=== PATIENT | female | born 1985 | race American Indian/Alaskan Native ===

== ENCOUNTER 2017-11-22 15:26 | Observation (INO) | payer OTHER ==
[2017-11-22 16:33] LABS: BASO # 0.1 K/uL (0.0-0.2); BASO % 1.5 % (0.0-2.0); EOS # 0.1 K/uL (0.0-0.7); EOS % 0.8 % (0.0-4.0); HEMOGLOBIN 6.7 g/dL (12.0-16.0); LYMPH # 3.2 K/uL (1.0-4.3); MEAN CELL VOLUME 64.6 fl (81.0-99.0); MEAN CORPUSCULAR HEMOGLOBIN 18.2 pg (27.0-31.0); MEAN CORPUSCULAR HGB CONC 28.2 g/dL (33.0-37.0); MEAN PLATELET VOLUME 8.9 fl (7.2-11.7); MONO # 0.5 K/uL (0.0-0.8); MONO % 6.6 % (0.0-10.0); NEUT # 3.7 K/uL (1.8-7.0); NEUT % 49.1 % (50.0-75.0); NRBC % 0.1 % (0.0-0.0); RBC 3.68 Mil/uL (3.80-5.20); RED CELL DISTRIBUTION WIDTH 23.7 % (11.5-14.5); WHITE BLOOD COUNT 7.6 K/uL (4.8-10.8)
[2017-11-22 16:50] LABS: INR 1.2 (0.9-1.2); PARTIAL THROMBOPLASTIN TIME 34.5 Seconds (25.6-37.1); PROTHROMBIN TIME 13.2 Seconds (9.8-13.1)
[2017-11-22 17:05] LABS: % IRON SATURATION 2.19 % (20-55)
[2017-11-22 17:06] LABS: IRON < 10 ug/dL (37-170); TOTAL IRON BINDING CAPACITY 455 ug/dL (250-450)
[2017-11-22 17:11] LABS: ALB/GLOB RATIO 1.4 (1.0-2.1); ALBUMIN 4.3 g/dL (3.5-5.0); ALT/SGPT 19 U/L (9-52); AST/SGOT 27 U/L (14-36); BLOOD UREA NITROGEN 7 mg/dl (7-17); CALCIUM 9.5 mg/dL (8.4-10.2); GFR AFRICAN-AMERICAN > 60; GFR NON-AFRICAN AMERICAN > 60; MAGNESIUM 1.9 MG/DL (1.6-2.3)
[2017-11-22 17:19] LABS: FERRITIN 2.6 ng/Ml (6.24-137.0)
--- NOTE | 2017-11-22 18:45 | ED PDOC ---
Syncope/Near Syncope/Dizziness Time Seen by Provider: 11/22/17 15:46 Chief Complaint (Nursing): Abnormal Labs Chief Complaint (Provider): near syncope History Per: Patient History/Exam Limitations: no limitations Onset/Duration Of Symptoms: Days (x1 month) Current Symptoms Are (Timing): Still Present Additional Complaint(s): 32 year old female who presents to the emergency department with a complaint of lightheadedness associated with near syncope, chest heaviness, pale fingers and heavy menstruation ongoing for 1 month. Denied any nosebleeds, dental bleed, dark or bloody stools. Patient was seen in Urgent Care on 11/16/17 when symptoms became severe and bloodwork revealed hemoglobin: 7.1. PMD: none provided Past Medical History Reviewed: Historical Data, Nursing Documentation, Vital Signs Vital Signs: Last Vital Signs Temp 98.2 F 11/22/17 15:33 Pulse 68 11/22/17 15:33 Resp 18 11/22/17 15:33 BP 112/53 L 11/22/17 15:33 Pulse Ox 100 11/22/17 15:33 - Medical History PMH: No Chronic Diseases - Surgical History Surgical History: No Surg Hx - Family History Family History: States: No Known Family Hx - Social History Current smoker - smoking cessation education provided: No Alcohol: None Drugs: Denies - Home Medications Home Medications: Ambulatory Orders Medication Instructions Recorded No Known Home Med 11/22/17 - Allergies Allergies/Adverse Reactions: Allergies Allergy/AdvReac Type Severity Reaction Status Date / Time No Known Allergies Allergy Verified 11/22/17 15:33 Review of Systems ROS Statement: Except As Marked, All Systems Reviewed And Found Negative ENT: Negative for: Nose Discharge (bleed), Other (dental bleed) Cardiovascular: Positive for: Chest Pain (heaviness), Light Headedness Gastrointestinal: Negative for: Melena, Hematochezia Genitourinary Female: Positive for: Vaginal Bleeding (heavy menstrual period) Skin: Positive for: Other (pallor fingers) Neurological: Positive for: Dizziness (near syncope) Physical Exam - Reviewed Nursing Documentation Reviewed: Yes Vital Signs Reviewed: Yes - Physical Exam Appears: Positive for: Non-toxic, In Acute Distress Head Exam: Positive for: ATRAUMATIC, NORMOCEPHALIC Skin: Positive for: Warm, Dry, Pallor Eye Exam: Positive for: EOMI, PERRL ENT: Negative for: Pharyngeal Erythema, Tonsillar Exudate Neck: Positive for: Painless ROM, Supple Cardiovascular/Chest: Positive for: Regular Rate, Rhythm, Chest Non Tender. Negative for: Murmur Respiratory: Positive for: Normal Breath Sounds. Negative for: Wheezing Gastrointestinal/Abdominal: Positive for: Soft. Negative for: Tenderness Back: Positive for: Normal Inspection. Negative for: Decreased ROM Extremity: Positive for: Normal ROM. Negative for: Deformity Lymphatic: Negative for: Adenopathy Neurologic/Psych: Positive for: Alert. Negative for: Motor/Sensory Deficits - Laboratory Results Result Diagrams: 11/22/17 16:10 11/22/17 16:10 - ECG O2 Sat by Pulse Oximetry: 100 (RA) Pulse Ox Interpretation: Normal Medical Decision Making Medical Decision Making: Initial Impression: Symptomatic anemia Initial Plan: * Crossmatch 1721 * Type and screen * EKG * CMP * Ferritin * Iron and TIBC * Magnesium * Phosphorous * Vitamin B12 * Hematology oncology consult 1736 * Urine * Urine dipstick * CBC * PTT * PT * Folate, RBC * Venofer 100ml IVPB * Call Rasta/oc 173 Time: 1722 --Hemoglobin recorded at 6.7 in ED. --Iron study: severe decrease in amount --Discussed case with Dr. Corbett, stencil maker recruitment consultant. Recommended admittance to hospital for blood and iron transfusions. --Discussed findings and plan with patient. --Dr. Quintanilla made aware of case. Scribe Attestation: Documented by Reena Osullivan, acting as a scribe for Danielle Silverman MD. Provider Scribe Attestation: All medical record entries made by the Scribe were at my direction and personally dictated by me. I have reviewed the chart and agree that the record accurately reflects my personal performance of the history, physical exam, medical decision making, and the department course for this patient. I have also personally directed, reviewed, and agree with the discharge instructions and disposition. Disposition - Clinical Impression Clinical Impression: Anemia, Iron deficiency, Symptomatic anemia - Disposition Disposition Time: 17:30 Condition: FAIR - Pt Status Changed To: Hospital Disposition Of: Observation - POA Present On Arrival: None
--- NOTE | 2017-11-22 23:02 | CP.PCM.CON ---
History of Present Illness - History of Present Illness History of Present Illness: OB consult note 32 year old female w/o PMH admitted due to symptomatic anemia with a complaint of lightheadedness associated with near syncope, chest heaviness, pale fingers and heavy menstruation ongoing for 1 month. Patient reports regular cycles lasting 7 days with heavy bleeding changing 3-4 pads per day. States some clots during periods. Denied any nosebleeds, dental bleed, dark or bloody stools. Patient was seen in Urgent Care on 11/16/17 when symptoms became severe and bloodwork revealed hemoglobin: 7.1, H/H today 6.7/23.8. PMH: none FMH: none PSH: none Meds: none NKDA SH: denies tobacco,etoh, ilicit drugs. Review of Systems - Review of Systems All systems: reviewed and no additional remarkable complaints except (as per HPI ) Past Patient History - Past Medical History & Family History Past Medical History?: No - Past Social History Smoking Status: Never Smoked - CARDIAC Hx Cardiac Disorders: No - PULMONARY Hx Respiratory Disorders: No - NEUROLOGICAL Hx Neurological Disorder: No - HEENT Hx HEENT Problems: No - RENAL Hx Chronic Kidney Disease: No - ENDOCRINE/METABOLIC Hx Endocrine Disorders: No - HEMATOLOGICAL/ONCOLOGICAL Hx Blood Disorders: No - INTEGUMENTARY Hx Dermatological Problems: No - MUSCULOSKELETAL/RHEUMATOLOGICAL Hx Musculoskeletal Disorders: No Hx Falls: No - GASTROINTESTINAL Hx Gastrointestinal Disorders: No - GENITOURINARY/GYNECOLOGICAL Hx Genitourinary Disorders: No - PSYCHIATRIC Hx Psychophysiologic Disorder: No Hx Substance Use: No - SURGICAL HISTORY Hx Surgeries: Yes Other/Comment: [place] teeth removal - ANESTHESIA Hx Anesthesia: Yes Hx Anesthesia Reactions: No Hx Malignant Hyperthermia: No Has any member of the family had a problem w/ anesthesia?: No Meds Allergies/Adverse Reactions: Allergies Allergy/AdvReac Type Severity Reaction Status Date / Time No Known Allergies Allergy Verified 11/22/17 15:33 Physical Exam - Constitutional Appears: Well, No Acute Distress - Head Exam Head Exam: ATRAUMATIC, NORMOCEPHALIC - Eye Exam Eye Exam: EOMI Pupil Exam: PERRL Additional comments: Pale mocous - Neck Exam Neck exam: Positive for: Normal Inspection - Respiratory Exam Respiratory Exam: Clear to Auscultation Bilateral - Cardiovascular Exam Cardiovascular Exam: REGULAR RHYTHM, +S1, +S2. absent: Systolic Murmur - GI/Abdominal Exam GI & Abdominal Exam: Normal Bowel Sounds, Soft. absent: Distended, Tenderness - Exam Bimanual exam: NORMAL BIMANUAL EXAM. absent: Adenexal Mass, Cervical Motion Tendernes, Uterine Enlargement, Uterine Tenderness Additional comments: Change Manager in room: Skip Hilton RN. - Extremities Exam Extremities exam: Positive for: normal inspection - Neurological Exam Neurological exam: CN II-XII Intact, Oriented x3 Results - Vital Signs Recent Vital Signs: Last Vital Signs Temp 98.3 F 11/22/17 21:34 Pulse 74 11/22/17 22:32 Resp 20 11/22/17 22:32 BP 141/90 11/22/17 21:34 Pulse Ox 97 11/22/17 22:32 - Labs Result Diagrams: 11/22/17 16:10 11/22/17 16:10 Labs: Laboratory Results - last 24 hr 11/22/17 11/22/17 11/22/17 16:10 16:10 16:10 WBC 7.6 RBC 3.68 L Hgb 6.7 L Hct 23.8 L MCV 64.6 L MCH 18.2 L MCHC 28.2 L RDW 23.7 H Plt Count 269 MPV 8.9 Neut % (Auto) 49.1 L Lymph % (Auto) 42.0 H Craven % (Auto) 6.6 Eos % (Auto) 0.8 Baso % (Auto) 1.5 Neut # 3.7 Lymph # 3.2 Craven # 0.5 Eos # 0.1 Baso # 0.1 PT 13.2 H INR 1.2 APTT 34.5 Sodium 141 Potassium 3.8 Chloride 106 Carbon Dioxide 23 Anion Gap 16 BUN 7 Creatinine 0.9 Est GFR ( Amer) > 60 Est GFR (Non-Af Amer) > 60 Random Glucose 91 Calcium 9.5 Phosphorus 3.6 Magnesium 1.9 Iron TIBC % Saturation Ferritin 2.6 L Total Bilirubin 0.3 AST 27 ALT 19 Alkaline Phosphatase 58 Total Protein 7.4 Albumin 4.3 Globulin 3.2 Albumin/Globulin Ratio 1.4 Vitamin B12 416 Blood Type Blood Type Confirm Antibody Screen Crossmatch BBK History Checked 11/22/17 11/22/17 11/22/17 16:10 16:15 16:56 WBC RBC Hgb Hct MCV MCH MCHC RDW Plt Count MPV Neut % (Auto) Lymph % (Auto) Craven % (Auto) Eos % (Auto) Baso % (Auto) Neut # Lymph # Craven # Eos # Baso # PT INR APTT Sodium Potassium Chloride Carbon Dioxide Anion Gap BUN Creatinine Est GFR ( Amer) Est GFR (Non-Af Amer) Random Glucose Calcium Phosphorus Magnesium Iron < 10 L TIBC 455 H % Saturation 2.19 L Ferritin Total Bilirubin AST ALT Alkaline Phosphatase Total Protein Albumin Globulin Albumin/Globulin Ratio Vitamin B12 Blood Type O POSITIVE Blood Type Confirm O POSITIVE Antibody Screen Negative Crossmatch See Detail BBK History Checked No verified bt Assessment & Plan - Assessment and Plan (Free Text) Assessment: 1-Symptomatic anemia -H/H 6.7/23.8 -secondary to heavy periods -iron deficiency: Iron <10 TIBC 455 Ferritin 2.6 -PRBC 2 units -Venofer 200mg IV once -f/u CBC 2- Menorrhagia -h/o heavy menses -transvaginal US Case discussed with Dr Silva, OB hospitalist marketing operations consultant Rosaura PGY 1.
[2017-11-23 05:17] VITALS: O2SAT 100
[2017-11-23 10:59] LABS: HEMOGLOBIN 8.9 g/dL (12.0-16.0); MEAN CELL VOLUME 67.8 fl (81.0-99.0); MEAN CORPUSCULAR HEMOGLOBIN 20.8 pg (27.0-31.0); MEAN CORPUSCULAR HGB CONC 30.6 g/dL (33.0-37.0); RBC 4.31 Mil/uL (3.80-5.20); RED CELL DISTRIBUTION WIDTH 25.5 % (11.5-14.5); WHITE BLOOD COUNT 5.8 K/uL (4.8-10.8)
[2017-11-23 11:10] LABS: ALB/GLOB RATIO 1.3 (1.0-2.1); ALT/SGPT 17 U/L (9-52); AST/SGOT 29 U/L (14-36); BLOOD UREA NITROGEN 7 mg/dl (7-17); CALCIUM 9.5 mg/dL (8.4-10.2); GFR AFRICAN-AMERICAN > 60; GFR NON-AFRICAN AMERICAN > 60
--- NOTE | 2017-11-23 11:44 | CP.PCM.CON ---
History of Present Illness - History of Present Illness History of Present Illness: 32 year old female with a history of menorrhagia, admitted with symptomatic anemia s/p PRBC transfusion. The patient reports to having blood work done at a local urgent care facility last week due to progressive fatigue. She was informed this week that her hgb was 7.1 with noted palpitations and told to report to the ER. In the ER she was found to have a hgb of 6.7 and admitted for PRBC transfusion. She is s/p 2U PRBC and Venofer. A transvaginal US revealed multiple uterine fibroids. Past medical history: Menorrhagia Past surgical history: none Family history: Denies hematologic and oncologic problems Social history: Denies tobacco, alcohol, and illicit drug use Allergies: NKA Review of systems: All remaining review of systems including HEENT, cardiovascular, respiratory, gastrointestinal, genitourinary, musculoskeletal, dermatologic, neurologic, and psychiatric are negative unless mentioned in the HPI. Past Patient History - Past Medical History & Family History Past Medical History?: No - Past Social History Smoking Status: Never Smoked - CARDIAC Hx Cardiac Disorders: No - PULMONARY Hx Respiratory Disorders: No - NEUROLOGICAL Hx Neurological Disorder: No - HEENT Hx HEENT Problems: No - RENAL Hx Chronic Kidney Disease: No - ENDOCRINE/METABOLIC Hx Endocrine Disorders: No - HEMATOLOGICAL/ONCOLOGICAL Hx Blood Disorders: No - INTEGUMENTARY Hx Dermatological Problems: No - MUSCULOSKELETAL/RHEUMATOLOGICAL Hx Musculoskeletal Disorders: No - GASTROINTESTINAL Hx Gastrointestinal Disorders: No - GENITOURINARY/GYNECOLOGICAL Hx Genitourinary Disorders: No - PSYCHIATRIC Hx Psychophysiologic Disorder: No - SURGICAL HISTORY Hx Surgeries: Yes Other/Comment: [place] teeth removal - ANESTHESIA Hx Anesthesia: Yes Hx Anesthesia Reactions: No Hx Malignant Hyperthermia: No Has any member of the family had a problem w/ anesthesia?: No Meds Home Medications: Home Medication List Medication Instructions Recorded Confirmed Type Ferrous Sulfate 325 mg PO DAILY #30 11/23/17 Rx Allergies/Adverse Reactions: Allergies Allergy/AdvReac Type Severity Reaction Status Date / Time No Known Allergies Allergy Verified 11/22/17 15:33 - Medications Medications: Current Medications Iron Sucrose 200 mg/ Sodium (Chloride) 110 mls @ 110 mls/hr IVPB DAILY CIERRA Physical Exam - Head Exam Head Exam: ATRAUMATIC - Eye Exam Eye Exam: Normal appearance - ENT Exam ENT Exam: Mucous Membranes Dry - Respiratory Exam Respiratory Exam: NORMAL BREATHING PATTERN - Cardiovascular Exam Cardiovascular Exam: +S1, +S2 - GI/Abdominal Exam GI & Abdominal Exam: Normal Bowel Sounds - Extremities Exam Extremities exam: Positive for: normal inspection - Neurological Exam Neurological exam: Oriented x3 - Psychiatric Exam Psychiatric exam: Normal Affect, Normal Mood - Skin Skin Exam: Warm Results - Vital Signs Recent Vital Signs: Last Vital Signs Temp 98.3 F 11/23/17 08:08 Pulse 74 11/23/17 09:00 Resp 20 11/23/17 08:08 BP 104/63 11/23/17 08:08 Pulse Ox 100 11/23/17 08:08 - Labs Result Diagrams: 11/23/17 10:44 11/23/17 10:44 Labs: Laboratory Results - last 24 hr 11/22/17 11/22/17 11/22/17 16:10 16:10 16:10 WBC 7.6 RBC 3.68 L Hgb 6.7 L Hct 23.8 L MCV 64.6 L MCH 18.2 L MCHC 28.2 L RDW 23.7 H Plt Count 269 MPV 8.9 Neut % (Auto) 49.1 L Lymph % (Auto) 42.0 H [place] % (Auto) 6.6 Eos % (Auto) 0.8 Baso % (Auto) 1.5 Neut # 3.7 Lymph # 3.2 Irwin # 0.5 Eos # 0.1 Baso # 0.1 PT 13.2 H INR 1.2 APTT 34.5 Sodium 141 Potassium 3.8 Chloride 106 Carbon Dioxide 23 Anion Gap 16 BUN 7 Creatinine 0.9 Est GFR ( Amer) > 60 Est GFR (Non-Af Amer) > 60 Random Glucose 91 Calcium 9.5 Phosphorus 3.6 Magnesium 1.9 Iron TIBC % Saturation Ferritin 2.6 L Total Bilirubin 0.3 AST 27 ALT 19 Alkaline Phosphatase 58 Total Protein 7.4 Albumin 4.3 Globulin 3.2 Albumin/Globulin Ratio 1.4 Vitamin B12 416 Blood Type Blood Type Confirm Antibody Screen Crossmatch BBK History Checked 11/22/17 11/22/17 11/22/17 16:10 16:15 16:56 WBC RBC Hgb Hct MCV MCH MCHC RDW Plt Count MPV Neut % (Auto) Lymph % (Auto) Irwin % (Auto) Eos % (Auto) Baso % (Auto) Neut # Lymph # [place]win # Eos # Baso # PT INR APTT Sodium Potassium Chloride Carbon Dioxide Anion Gap BUN Creatinine Est GFR ( Amer) Est GFR (Non-Af Amer) Random Glucose Calcium Phosphorus Magnesium Iron < 10 L TIBC 455 H % Saturation 2.19 L Ferritin Total Bilirubin AST ALT Alkaline Phosphatase Total Protein Albumin Globulin Albumin/Globulin Ratio Vitamin B12 Blood Type O POSITIVE Blood Type Confirm O POSITIVE Antibody Screen Negative Crossmatch See Detail BBK History Checked No verified bt 11/23/17 11/23/17 10:44 10:44 WBC 5.8 RBC 4.31 Hgb 8.9 L D Hct 29.2 L MCV 67.8 L D MCH 20.8 L MCHC 30.6 L RDW 25.5 H Plt Count 261 MPV Neut % (Auto) Lymph % (Auto) Irwin % (Auto) Eos % (Auto) Baso % (Auto) Neut # Lymph # [place] # Eos # Baso # PT INR APTT Sodium 142 Potassium 4.1 Chloride 106 Carbon Dioxide 24 Anion Gap 16 BUN 7 Creatinine 0.9 Est GFR ( Amer) > 60 Est GFR (Non-Af Amer) > 60 Random Glucose 94 Calcium 9.5 Phosphorus Magnesium Iron TIBC % Saturation Ferritin Total Bilirubin 0.8 AST 29 ALT 17 Alkaline Phosphatase 45 Total Protein 7.0 Albumin 4.0 Globulin 3.0 Albumin/Globulin Ratio 1.3 Vitamin B12 Blood Type Blood Type Confirm Antibody Screen Crossmatch BBK History Checked Assessment & Plan (1) Anemia Assessment and Plan: work up consistent with iron deficiency anemia likely from menorrhagia from uterine fibroids s/p 2U PRBC and Venofer repeat CBC pending and to receive another dose of Venofer outpatient f/u in 1 week Thank you for this interesting consult. Status: Acute
[2017-11-23 12:28] VITALS: PULSE 72
--- NOTE | 2017-11-23 15:11 | US ---
HISTORY: menorrhagia COMPARISON: None available. TECHNIQUE: Grayscale, color Doppler and spectral evaluation of the pelvis performed transvaginally. FINDINGS: UTERUS: Measures 13.8 x 7.9 x 10.0 cm. Anteverted. Large fundal fibroid measuring 8.3 x 6.7 x 7.4 centimeter. Left-sided pedunculated fibroid measuring 4.1 x 3.2 x 3.4 centimeter. ENDOMETRIUM: Measures 6 mm in diameter. Unremarkable. CERVIX: No cervical abnormality identified. RIGHT OVARY: Measures 4.1 x 3.6 x 3.1 cm. No solid mass. Normal flow. LEFT OVARY: Measures 5.3 x 1.9 x 4.5 cm. No solid mass. Normal flow. FREE FLUID: No significant free fluid noted. OTHER FINDINGS: None. IMPRESSION: Multiple uterine leiomyomas, the largest of which measures up to 8.3 centimeter.
[2017-11-23 15:50] VITALS: BP 103/67; RESP 19; TEMP 98.2
--- NOTE | 2017-11-23 16:32 | CP.PCM.CON ---
History of Present Illness - History of Present Illness History of Present Illness: I was asked to see patient by Dr Quintanilla. Patient is a 32 year old female with no significant PMH who presents with fatigue and palpitations. The patient was found to be anemic and required blood transfusion. She has more energy, but still has intermittent palpitaitons. Telemetry reveals NSR. Review of Systems - Constitutional Constitutional: absent: As Per HPI, Anorexia, Chills, Daytime Sleepiness, Excessive Sweating, Fatigue, Fever, Frequent Falls, Headache, Increased Appetite , Lethargy, Malaise, Night Sweats, Snoring, Sleep Apnea, Weight Gain, Weight Loss, Weakness, Other - EENT Eyes: absent: As Per HPI, Blind Spots, Blurred Vision, Change in Vision, Decreased Night Vision, Diplopia, Discharge, Dry Eye, Exophthalmos, Floaters, Irritation, Itchy Eyes, Loss of Peripheral Vision, Pain, Photophobia, Requires Corrective Lenses, Sees Flashes, Spots in Vision, Tunnel Vision, Other Visual Disturbances, Loss of Vision, Other Ears: absent: As Per HPI, Decreased Hearing, Ear Discharge, Ear Pain, Tinnitus, Abnormal Hearing, Disequilibrium, Dizziness, Other Nose/Mouth/Throat: absent: As Per HPI, Epistaxis, Nasal Congestion, Nasal Discharge, Nasal Obstruction, Nasal Trauma, Nose Pain, Post Nasal Drip, Sinus Pain, Sinus Pressure, Bleeding Gums, Change in Voice, Dental Pain, Dry Mouth, Dysphagia, Halitosis, Hoarsness, Lip Swelling, Mouth Lesions, Mouth Pain, Odynophagia, Sore Throat, Throat Swelling, Tongue Swelling, Facial Pain, Neck Pain, Neck Mass, Other - Cardiovascular Cardiovascular: Palpitations - Respiratory Respiratory: absent: As Per HPI, Cough, Dyspnea, Hemoptysis, Dyspnea on Exertion , Wheezing, Snoring, Stridor, Pain on Inspiration, Chest Congestion, Excessive Mucous Production, Change in Mucous Color, Pain with Coughing, Other - Gastrointestinal Gastrointestinal: absent: As Per HPI, Abdominal Pain, Belching, Bloating, Change in Bowel Habits, Change in Stool Character, Coffee Ground Emesis, Constipation, Cramping, Diarrhea, Dyspepsia, Dysphagia, Early Satiety, Excessive Flatus, Fecal Incontinence, Heartburn, Hematemesis, Hematochezia, Loose Stools, Melena, Nausea, Odynophagia, Temesmus, Vomiting, Other - Genitourinary Genitourinary: absent: As Per HPI, Change in Urinary Stream, Difficulty Urinating, Dysuria, Flank Pain, Hematuria, Pyuria, Nocturia, Urinary Incontinence, Urinary Frequency, Urinary Hesitance, Urinary Urgency, Voiding Freq/Small Amts, Freq UTI, Hx Renal/Bladder Calculi, Hx /Renal Surgery, Bladder Distension, Other - Menstruation Menstruation: Normal Menses - Musculoskeletal Musculoskeletal: absent: As Per HPI, Abnormal Gait, Arthralgias, Atrophy, Back Pain, Deformity, Joint Swelling, Limited Range of Motion, Loss of Height, Muscle Cramps, Muscle Weakness, Myalgias, Neck Pain, Numbness, Radiating Pain into Limb, Stiffness, Tingling, Other - Integumentary Integumentary: absent: As Per HPI, Acne, Alopecia, Bleeding Lesions, Change in Hair, Change in Nails, Change in Pigmentation, Changing Lesions, Dry Skin, Erythema, Furuncle, Hirsutism, Lesions, New Lesions, Non-Healing Lesions, Photosensitivity, Pruritus, Rash, Skin Pain, Skin Ulcer, Sores, Striae, Swelling , Unusual Bruising, Wounds, Jaundice, Other - Neurological Neurological: absent: As Per HPI, Abnormal Gait, Abnormal Hearing, Abnormal Movements, Abnormal Speech, Behavioral Changes, Burning Sensations, Confusion, Convulsions, Disequilibrium, Dizziness, Numbness, Focal Weakness, Frequent Falls , Headaches, Lack of Coordination, Loss of Vision, Memory Loss, Paresthesias, Radicular Pain, Restless Legs, Sensory Deficit, Syncope, Tingling, Tremor, Vertigo, Weakness, Other Visual Disturbances, Other - Psychiatric Psychiatric: absent: As Per HPI, Abnormal Sleep Pattern, Anhedonia, Anxiety, Auditory Hallucinations, Behavioral Changes, Change in Appetite, Change in Libido, Confusion, Depression, Difficulty Concentrating, Hallucinations, Homicidal Ideation, Hopelessness, Irritability, Memory Loss, Mood Swings, Panic Attacks, Paranoia, Suicidal Ideation, Visual Hallucinations, Tactile Hallucinations, Other - Endocrine Endocrine: absent: As Per HPI, Change in Body Appearance, Change in Libido, Cold Intolorance, Deepening of Voice, Excessive Sweating, Fatigue, Flushing, Heat Intolorance, Increase in Ring/Shoe/Hat Size, Palpitations, Polydipsia, Polyphagia, Polyuria, Other - Hematologic/Lymphatic Hematologic: absent: As Per HPI, Easy Bleeding, Easy Bruising, Lymphadenopathy, Other Past Patient History - Past Medical History & Family History Past Medical History?: No - Past Social History Smoking Status: Never Smoked - CARDIAC Hx Cardiac Disorders: No - PULMONARY Hx Respiratory Disorders: No - NEUROLOGICAL Hx Neurological Disorder: No - HEENT Hx HEENT Problems: No - RENAL Hx Chronic Kidney Disease: No - ENDOCRINE/METABOLIC Hx Endocrine Disorders: No - HEMATOLOGICAL/ONCOLOGICAL Hx Blood Disorders: No - INTEGUMENTARY Hx Dermatological Problems: No - MUSCULOSKELETAL/RHEUMATOLOGICAL Hx Musculoskeletal Disorders: No - GASTROINTESTINAL Hx Gastrointestinal Disorders: No - GENITOURINARY/GYNECOLOGICAL Hx Genitourinary Disorders: No - PSYCHIATRIC Hx Psychophysiologic Disorder: No - SURGICAL HISTORY Hx Surgeries: Yes Other/Comment: [place] teeth removal - ANESTHESIA Hx Anesthesia: Yes Hx Anesthesia Reactions: No Hx Malignant Hyperthermia: No Has any member of the family had a problem w/ anesthesia?: No Meds Home Medications: Home Medication List Medication Instructions Recorded Confirmed Type Ferrous Sulfate 325 mg PO DAILY #30 11/23/17 Rx Allergies/Adverse Reactions: Allergies Allergy/AdvReac Type Severity Reaction Status Date / Time No Known Allergies Allergy Verified 11/22/17 15:33 - Medications Medications: Current Medications Iron Sucrose 200 mg/ Sodium (Chloride) 110 mls @ 110 mls/hr IVPB DAILY CIERRA Last Admin: 11/23/17 14:55 Dose: Not Given Results - Vital Signs Recent Vital Signs: Last Vital Signs Temp 98.2 F 11/23/17 15:49 Pulse 72 11/23/17 15:49 Resp 19 11/23/17 15:49 BP 103/67 11/23/17 15:49 Pulse Ox 100 11/23/17 15:49 - Labs Result Diagrams: 11/23/17 10:44 11/23/17 10:44 Labs: Laboratory Results - last 24 hr 11/22/17 11/22/17 11/22/17 16:10 16:10 16:10 WBC 7.6 RBC 3.68 L Hgb 6.7 L Hct 23.8 L MCV 64.6 L MCH 18.2 L MCHC 28.2 L RDW 23.7 H Plt Count 269 MPV 8.9 Neut % (Auto) 49.1 L Lymph % (Auto) 42.0 H [place] % (Auto) 6.6 Eos % (Auto) 0.8 Baso % (Auto) 1.5 Neut # 3.7 Lymph # 3.2 M[place] # 0.5 Eos # 0.1 Baso # 0.1 PT 13.2 H INR 1.2 APTT 34.5 Sodium 141 Potassium 3.8 Chloride 106 Carbon Dioxide 23 Anion Gap 16 BUN 7 Creatinine 0.9 Est GFR ( Amer) > 60 Est GFR (Non-Af Amer) > 60 Random Glucose 91 Calcium 9.5 Phosphorus 3.6 Magnesium 1.9 Iron TIBC % Saturation Ferritin 2.6 L Total Bilirubin 0.3 AST 27 ALT 19 Alkaline Phosphatase 58 Total Protein 7.4 Albumin 4.3 Globulin 3.2 Albumin/Globulin Ratio 1.4 Vitamin B12 416 Blood Type Blood Type Confirm Antibody Screen Crossmatch BBK History Checked 11/22/17 11/22/17 11/22/17 16:10 16:15 16:56 WBC RBC Hgb Hct MCV MCH MCHC RDW Plt Count MPV Neut % (Auto) Lymph % (Auto) M[place] % (Auto) Eos % (Auto) Baso % (Auto) Neut # Lymph # M[place] # Eos # Baso # PT INR APTT Sodium Potassium Chloride Carbon Dioxide Anion Gap BUN Creatinine Est GFR ( Amer) Est GFR (Non-Af Amer) Random Glucose Calcium Phosphorus Magnesium Iron < 10 L TIBC 455 H % Saturation 2.19 L Ferritin Total Bilirubin AST ALT Alkaline Phosphatase Total Protein Albumin Globulin Albumin/Globulin Ratio Vitamin B12 Blood Type O POSITIVE Blood Type Confirm O POSITIVE Antibody Screen Negative Crossmatch See Detail BBK History Checked No verified bt 11/23/17 11/23/17 10:44 10:44 WBC 5.8 RBC 4.31 Hgb 8.9 L D Hct 29.2 L MCV 67.8 L D MCH 20.8 L MCHC 30.6 L RDW 25.5 H Plt Count 261 MPV Neut % (Auto) Lymph % (Auto) Mingo % (Auto) Eos % (Auto) Baso % (Auto) Neut # Lymph # Mingo # Eos # Baso # PT INR APTT Sodium 142 Potassium 4.1 Chloride 106 Carbon Dioxide 24 Anion Gap 16 BUN 7 Creatinine 0.9 Est GFR ( Amer) > 60 Est GFR (Non-Af Amer) > 60 Random Glucose 94 Calcium 9.5 Phosphorus Magnesium Iron TIBC % Saturation Ferritin Total Bilirubin 0.8 AST 29 ALT 17 Alkaline Phosphatase 45 Total Protein 7.0 Albumin 4.0 Globulin 3.0 Albumin/Globulin Ratio 1.3 Vitamin B12 Blood Type Blood Type Confirm Antibody Screen Crossmatch BBK History Checked - EKG Data EKG Interpreted by: Myself EKG shows normal: Sinus rhythm Assessment & Plan (1) Palpitations Assessment and Plan: likely due to anemia. no events on telemetry. stable for discharge today. can have outpatient holter monitor placed. Status: Acute
--- NOTE | 2017-11-23 21:34 | CARD ---
APPROVED REPORT EKG Measurement Heart [id number] VA [id number] <Conclusion> Normal sinus rhythm with sinus arrhythmia Possible Left atrial enlargement Borderline ECG
--- NOTE | 2017-11-23 21:54 | CARD ---
APPROVED REPORT EKG Measurement Heart [id number] CO [id number] <Conclusion> Normal sinus rhythm Possible Left atrial enlargement Borderline ECG
--- NOTE | 2017-11-24 04:21 | HP ---
HISTORY OF PRESENT ILLNESS: The patient is a 32-year-old female with no significant past medical history, presented to emergency room with symptoms of dizziness and palpitation. The patient was evaluated in the emergency room and she was found to be severely anemic with hemoglobin of 6.7. The patient was started on packed RBCs transfusion and IV iron. The patient had a Hematology consultation done while she was in the emergency room by Dr. Corbett. The patient stated that she had no history of blood loss except that she has prolonged menstrual period of 7 days' duration with frequent pad changes. REVIEW OF SYSTEMS: Other review of system is negative. ALLERGIES: NO KNOWN ALLERGY. MEDICATIONS: None. PAST MEDICAL HISTORY: Nonsignificant. SOCIAL HISTORY: No history of smoking, EtOH, or substance abuse. FAMILY HISTORY: Noncontributory. PHYSICAL EXAMINATION: GENERAL: The patient is in bed, comfortable, with no cardiopulmonary distress. VITAL SIGNS: Blood pressure is 104/62, temperature 98.1, respiratory rate 20, and pulse 72. HEENT: Pale mucosa of the conjunctivae. Pupils equal and reactive to light. NECK: Supple. No JVD. No carotid bruit. No lymph node. No thyromegaly. CHEST/LUNGS: Bilateral symmetrical expansion. Good air exchange. No rales, no rhonchi. CARDIOVASCULAR: PMI not localized. S1, S2. No additional sounds. ABDOMEN: Normoactive bowel sounds. No tenderness or organomegaly. No masses. EXTREMITIES: No cyanosis, no clubbing, no edema. CARBON SETTER: Alert, awake, oriented x3. No neurological deficit could be appreciated. ASSESSMENT: 1. Anemia of chronic blood loss. 2. Menorrhagia. 3. Iron deficiency anemia. 4. Extrasystole. PLAN: Monitor hemoglobin and hematocrit. Cardiology consult. Follow Hematology consult recommendations. Lachelle Quintanilla MD
--- NOTE | 2017-11-24 06:02 | DS ---
REASON FOR ADMISSION: This is a 32-year-old female with no significant past medical history, was admitted for severe iron-deficiency anemia, symptomatic. COURSE OF HOSPITALIZATION: Patient was admitted to telemetry floor and she was started on packed RBCs transfusion as well as IV iron. The patient had a Cardiology consult done by Dr. Reyes and Hematology consult done by Dr. Elias Corbett. The patient's symptoms eventually resolved and she was discharged home as her hemoglobin came up to 8.9. FINAL DIAGNOSES: 1. Iron-deficiency anemia. 2. Menorrhagia. 3. Extrasystole. Patient will be following with her hall director and to continue p.o. iron and vitamin C as an outpatient. [facility] MD Dwight
== END 2017-11-23 17:20 | disposition home or self-care (01) ==
LOC: H.ER 15:26 → H.ERHOLD 17:31 → H.TEL 21:28
PROVIDERS: ADMIT Internal Medicine; ATTEND Internal Medicine
DX: D50.0 Iron deficiency anemia secondary to blood loss (chronic) (principal); D25.9 Leiomyoma of uterus, unspecified; N92.0 Excessive and frequent menstruation with regular cycle; R00.2 Palpitations; I49.49 Other premature depolarization
CPT/HCPCS: 36415; 36430; 76830; 80053; 81025; 82607; 82728; 82747; 83540; 83550; 83735; 84100; 84484; 85025; 85027; 85610; 85730; 86850; 86900; 86920; 93005; 99282; G0378; J1756; P9051

== ENCOUNTER 2018-06-14 14:28 | Emergency (ER) | payer OTHER ==
[2018-06-14 14:40] VITALS: O2SAT 100
--- NOTE | 2018-06-14 15:15 | ED PDOC ---
HPI: Chest Pain Time Seen by Provider: 06/14/18 15:11 Chief Complaint (Nursing): Chest Pain Chief Complaint (Provider): CP History Per: Patient (32 Y/O FEMALE H/O ANEMIA HERE WITH LEFT SIDE CHEST PRESSURE ASSOCIATED WITH NUMBNESS IN LEFT ARM INTERMITTENT X 3 DAYS. PATIENT HAS H/O ANEMIA AND IS CONCERNED HER HGB HAS DROPPED. IS CURRENTLY ON IRON SUPPLEMENTS. DENIES ANY HEAVY MENSES. NO SMOKING/NO OCP/NO LONG FLIGHTS.) Past Medical History Reviewed: Historical Data, Nursing Documentation, Vital Signs Vital Signs: Last Vital Signs Temp 98 F 06/14/18 17:04 Pulse 68 06/14/18 17:04 Resp 16 06/14/18 17:04 BP 108/70 06/14/18 17:04 Pulse Ox 100 06/17/18 16:15 - Medical History PMH: Denies: Chronic Kidney Disease - Family History Family History: States: No Known Family Hx - Home Medications Home Medications: Ambulatory Orders Medication Instructions Recorded Ferrous Sulfate 325 mg PO DAILY #30 11/23/17 Ibuprofen [Motrin] 600 mg PO Q8 PRN #21 tab 06/14/18 - Allergies Allergies/Adverse Reactions: Allergies Allergy/AdvReac Type Severity Reaction Status Date / Time No Known Allergies Allergy Verified 11/22/17 15:33 Review of Systems ROS Statement: Except As Marked, All Systems Reviewed And Found Negative Physical Exam - Reviewed Nursing Documentation Reviewed: Yes Vital Signs Reviewed: Yes - Physical Exam Appears: Positive for: Well, Non-toxic, No Acute Distress Head Exam: Positive for: ATRAUMATIC, NORMAL INSPECTION, NORMOCEPHALIC Skin: Positive for: Normal Color, Warm, DRY Eye Exam: Positive for: EOMI, Normal appearance, PERRL ENT: Positive for: Normal ENT Inspection Neck: Positive for: Normal, Painless ROM Cardiovascular/Chest: Positive for: Regular Rate, Rhythm Respiratory: Positive for: CNT, Normal Breath Sounds Gastrointestinal/Abdominal: Positive for: Normal Exam, Soft Back: Positive for: Normal Inspection Extremity: Positive for: Normal ROM Neurologic/Psych: Positive for: Alert, Oriented - Laboratory Results Result Diagrams: 06/14/18 15:20 06/14/18 15:20 Urine POC: Negative - ECG O2 Sat by Pulse Oximetry: 100 - Radiology X-Ray: Read By Radiologist (NAD) - Progress ED Course And Treament: Patient states she had restarted iron supplements/ vit b 12/ folic acid at same time recently when symptoms bega. Disposition - Clinical Impression Clinical Impression: Chest pain - Patient ED Disposition Is Patient to be Admitted: No - Disposition Referrals: Storm Reyes MD [Staff Provider] - Disposition: Routine/Home Disposition Time: 16:47 Condition: STABLE Additional Instructions: STOP IRON UNTIL SEEN BY PMD. Prescriptions: Ibuprofen [Motrin] 600 mg PO Q8 PRN #21 tab PRN Reason: Pain, Moderate (4-7) Instructions: Chest Pain (DC)
[2018-06-14 15:28] LABS: BASO % 0.5 % (0.0-2.0); EOS % 0.4 % (0.0-4.0); LYMPH # 1.6 K/uL (1.0-4.3); LYMPH % 20.9 % (20.0-40.0); MEAN CELL VOLUME 101.6 fl (81.0-99.0); MEAN CORPUSCULAR HEMOGLOBIN 34.3 pg (27.0-31.0); MEAN CORPUSCULAR HGB CONC 33.8 g/dL (33.0-37.0); MEAN PLATELET VOLUME 9.5 fl (7.2-11.7); MONO # 0.6 K/uL (0.0-0.8); MONO % 7.9 % (0.0-10.0); NEUT # 5.2 K/uL (1.8-7.0); NEUT % 70.3 % (50.0-75.0); NRBC % 0.1 % (0.0-0.0); RBC 4.36 Mil/uL (3.80-5.20); RED CELL DISTRIBUTION WIDTH 13.3 % (11.5-14.5); WHITE BLOOD COUNT 7.5 K/uL (4.8-10.8)
[2018-06-14 15:44] LABS: ALB/GLOB RATIO 1.5 (1.0-2.1); ALBUMIN 4.5 g/dL (3.5-5.0); ALT/SGPT 20 U/L (9-52); AST/SGOT 26 U/L (14-36); BLOOD UREA NITROGEN 8 mg/dl (7-17); CALCIUM 9.4 mg/dL (8.4-10.2); GFR AFRICAN-AMERICAN > 60; GFR NON-AFRICAN AMERICAN 58
[2018-06-14] MEDS ORDERED: Sodium Chloride 0.9% 1,000 ML IV STA (16:23)
[2018-06-14 17:04] VITALS: BP 108/70; PULSE 68; RESP 16; TEMP 98
--- NOTE | 2018-06-15 07:22 | CARD ---
APPROVED REPORT Date of service: 06/14/2018 <Conclusion> Normal sinus rhythm Possible Left atrial enlargement Borderline ECG
== END 2018-06-14 17:27 | disposition home or self-care (01) ==
LOC: H.ER 14:28
DX: R07.89 Other chest pain (principal); D64.9 Anemia, unspecified